=== PATIENT | female | born 1990 | race African-American/Black ===

== ENCOUNTER 2021-01-26 09:45 | Emergency (ER) | payer MEDICAID ==
[~2021-01-26] VITALS: Ht 162.6 cm; Wt 66.0 kg
[2021-01-26] MEDS ORDERED: IBUPROFEN 800MG TABLET PO ONE (10:00)
[2021-01-26] MEDS ORDERED: METOCLOPRAMIDE HCL 10MG TABLET PO ONE (10:00)
[2021-01-26] MEDS ORDERED: SERTRALINE HCL 100MG TABLET PO STA (10:02)
[2021-01-26] MEDS ORDERED: SERT100T MT (11:16)
[2021-01-26] MEDS ORDERED: TOPUD MT (11:16)
[2021-01-26 11:41] VITALS: BP 121/75
== END 2021-01-26 11:56 | disposition home or self-care (01) ==
LOC: ER 09:49
DX: F41.9 Anxiety disorder, unspecified (principal); R51.9 Headache, unspecified; Z76.0 Encounter for issue of repeat prescription
CPT/HCPCS: 81025; 93005; 99284; J8597; Z7610

== ENCOUNTER 2021-03-01 15:46 | Emergency (ER) | payer MEDICAID ==
[~2021-03-01] VITALS: Ht 162.6 cm; Wt 73.0 kg
[~2021-03-01 15:46] MED LIST: SERT100T MT; TOPUD MT
[2021-03-01] MEDS ORDERED: SODIUM CHLORIDE 0.9% 1,000 ML IV ONE (16:30)
[2021-03-01] MEDS ORDERED: ACETAMINOPHEN 325MG TABLET PO ONE (17:15)
[2021-03-01 17:28] LABS: BASOPHILS % 0.7 % (0.0-2.0); EOSINOPHILS % 1.2 % (0.0-5.0); HEMATOCRIT. 37.6 % (36.0-48.0); HEMOGLOBIN. 12.9 g/dL (12.0-16.0); LYMPHOCYTES % 20.7 % (20.0-50.0); MEAN CORPUSCULAR VOLUME 87.4 fL (81.0-99.0); MEAN PLATELET VOLUME 7.8 fl (7.4-10.4); MONOCYTES % 10.6 % (2.0-8.0); NEUTROPHILS % 66.8 % (40.0-76.0); PLATELET 282 x1000/uL (130-400); RED BLOOD CELL COUNT 4.31 mill/uL (4.2-5.4); RED CELL DISTRIBUTION WIDTH 14.8 % (11.6-14.6)
[2021-03-01 17:34] LABS: CHLORIDE 103 mEq/L (98-107)
[2021-03-01 17:35] LABS: CLARITY URINE CLOUDY (CLEAR); COLOR URINE YELLOW (YELLOW); KETONES URINE TRACE (NEGATIVE); LEUKOCYTE ESTERASE URINE TRACE (NEGATIVE); NITRITE URINE NEGATIVE (NEGATIVE); OCCULT BLOOD URINE NEGATIVE (NEGATIVE); PH URINE 5.5 (4.5-8.0); PROTEIN URINE NEGATIVE (NEGATIVE); SPECIFIC GRAVITY URINE 1.027 (1.005-1.030)
[2021-03-01 17:36] LABS: PROTHROMBIN TIME 10.5 sec (9.6-11.0)
[2021-03-01 17:39] LABS: ETHANOL BLOOD < 10 mg/dL
[2021-03-01 17:49] LABS: *BARBITURATES SCREEN URINE NEGATIVE (NEGATIVE); *COCAINE SCREEN URINE NEGATIVE (NEGATIVE); CANNABINOID URINE SCREEN NEGATIVE (NEGATIVE); METHADONE URINE SCREEN NEGATIVE (NEGATIVE); OPIATES URINE SCREEN NEGATIVE (NEGATIVE); PHENCYCLIDINE URINE SCREEN NEGATIVE (NEGATIVE)
[2021-03-01 17:50] LABS: *AMPHETAMINES SCREEN URINE NEGATIVE (NEGATIVE); *BENZODIAZEPINES SCREEN URINE NEGATIVE (NEGATIVE)
[2021-03-01 17:59] LABS: B-HCG QUANTITATIVE 148157 mIU/mL (<3)
[2021-03-02] MEDS ORDERED: MIDAZOLAM HCL 2 MG/2 ML VIAL IV ONE (02:00)
[2021-03-02] MEDS ORDERED: MORPHINE SULFATE 4 MG/ML CPJ (NOT FOR IM USE) IV ONE (02:30)
[2021-03-02] MEDS ORDERED: ACETAMINOPHEN 325MG TABLET PO ONE (07:15)
[2021-03-02 08:11] VITALS: BP 115/73
== END 2021-03-02 08:59 | disposition short-term general hospital (02) ==
LOC: ER 15:46
DX: O26.891 Other specified pregnancy related conditions, first trimester (principal); S00.83XA Contusion of other part of head, initial encounter; T14.8XXA Other injury of unspecified body region, initial encounter; O99.341 Other mental disorders complicating pregnancy, first trimester; Z3A.01 Less than 8 weeks gestation of pregnancy; Z20.822 Contact with and (suspected) exposure to COVID-19; Y04.0XXA Assault by unarmed brawl or fight, initial encounter; Y93.89 Activity, other specified; Y92.018 Other place in single-family (private) house as the place of occurrence of the external cause
CPT/HCPCS: 36415; 70450; 70486; 72125; 72141; 76801; 80053; 80305; 80320; 81003; 81025; 83690; 84702; 85025; 85610; 86850; 86900; 86901; 87426; 93005; 96361; 96374; 96375; 99285; J2250; J2270; J7030; Z7610; G0480

== ENCOUNTER 2021-04-01 15:44 | Emergency (ER) | payer MEDICAID, OTHER ==
[~2021-04-01] VITALS: Ht 162.6 cm; Wt 74.0 kg
[2021-04-01] MEDS ORDERED: ACETAMINOPHEN 500MG TABLET PO STA (16:32)
[2021-04-01 17:57] LABS: CLARITY URINE CLEAR (CLEAR); COLOR URINE YELLOW (YELLOW); KETONES URINE NEGATIVE (NEGATIVE); LEUKOCYTE ESTERASE URINE NEGATIVE (NEGATIVE); NITRITE URINE NEGATIVE (NEGATIVE); OCCULT BLOOD URINE NEGATIVE (NEGATIVE); PROTEIN URINE NEGATIVE (NEGATIVE); SPECIFIC GRAVITY URINE 1.019 (1.005-1.030)
[2021-04-01 18:17] LABS: *AMPHETAMINES SCREEN URINE NEGATIVE (NEGATIVE); *BARBITURATES SCREEN URINE NEGATIVE (NEGATIVE); *BENZODIAZEPINES SCREEN URINE NEGATIVE (NEGATIVE); *COCAINE SCREEN URINE NEGATIVE (NEGATIVE); CANNABINOID URINE SCREEN NEGATIVE (NEGATIVE); METHADONE URINE SCREEN NEGATIVE (NEGATIVE); OPIATES URINE SCREEN NEGATIVE (NEGATIVE); PHENCYCLIDINE URINE SCREEN NEGATIVE (NEGATIVE)
[2021-04-01 19:00] VITALS: BP 58/76
== END 2021-04-01 19:04 | disposition home or self-care (01) ==
LOC: ER 16:05
DX: R51.9 Headache, unspecified (principal); I49.9 Cardiac arrhythmia, unspecified
CPT/HCPCS: 70450; 70486; 80305; 81003; 81025; 93005; 99285; Z7610

== ENCOUNTER 2021-06-19 21:21 | Observation (INO) | payer OTHER, MEDICAID ==
[~2021-06-19] VITALS: Ht 160 cm; Wt 75.7 kg
[2021-06-19 22:15] LABS: CLARITY URINE CLEAR (CLEAR); COLOR URINE YELLOW (YELLOW); KETONES URINE NEGATIVE (NEGATIVE); LEUKOCYTE ESTERASE URINE 3+ (NEGATIVE); NITRITE URINE NEGATIVE (NEGATIVE); OCCULT BLOOD URINE NEGATIVE (NEGATIVE); PROTEIN URINE NEGATIVE (NEGATIVE); SPECIFIC GRAVITY URINE 1.012 (1.005-1.030); UROBILINOGEN URINE 0.2 E.U./dL (0.2-1.0)
[2021-06-19] MEDS ORDERED: CEFAZOLIN 2,000 MG in DEXT 5% WATER 100 ML IV NR (23:15)
[2021-06-19] MEDS ORDERED: LACTATED RINGERS 1,000 ML IV SCH (23:15)
[2021-06-20] MEDS ORDERED: PREN1TAB23 PO (00:19)
[2021-06-20] MEDS ORDERED: SERT100T PO (00:19)
== END 2021-06-20 01:24 | disposition home or self-care (01) ==
LOC: 8 EST LDRP 21:21
PROVIDERS: ADMIT Obstetrics & Gynecology; ATTEND Obstetrics & Gynecology
DX: O42.912 Preterm premature rupture of membranes, unspecified as to length of time between rupture and onset of labor, second trimester (principal); O26.892 Other specified pregnancy related conditions, second trimester; R10.30 Lower abdominal pain, unspecified; Z3A.21 21 weeks gestation of pregnancy
CPT/HCPCS: 59025; 76805; 76817; 81003; 96365; G0378; J0690; J7060; 96360; 99281

== ENCOUNTER 2021-06-20 05:29 | Emergency (ER) | payer MEDICAID, OTHER ==
[~2021-06-20] VITALS: Ht 160 cm; Wt 76.0 kg
[~2021-06-20 05:29] MED LIST changes: +PREN1TAB23 PO; +SERT100T PO
[2021-06-20] MEDS ORDERED: METOCLOPRAMIDE HCL 10MG/2ML VIAL IV ONE (06:30)
[2021-06-20] MEDS ORDERED: SODIUM CHLORIDE 0.9% 1,000 ML IV ONE (06:30)
[2021-06-20 07:30] LABS: BASOPHILS % 0.3 % (0.0-2.0); EOSINOPHILS % 1.7 % (0.0-5.0); HEMATOCRIT. 35.5 % (36.0-48.0); HEMOGLOBIN. 12.3 g/dL (12.0-16.0); LYMPHOCYTES % 14.9 % (20.0-50.0); MEAN CORPUSCULAR HEMOGLOBIN 30.3 pg (28.0-32.0); MEAN CORPUSCULAR VOLUME 87.5 fL (81.0-99.0); MEAN PLATELET VOLUME 7.6 fl (7.4-10.4); NEUTROPHILS % 72.1 % (40.0-76.0); PLATELET 250 x1000/uL (130-400); RED BLOOD CELL COUNT 4.06 mill/uL (4.2-5.4); RED CELL DISTRIBUTION WIDTH 14.2 % (11.6-14.6)
[2021-06-20 07:37] LABS: CHLORIDE 106 mEq/L (98-107)
[2021-06-20 08:45] LABS: PROTHROMBIN TIME 10.5 sec (9.6-11.0)
[2021-06-20 09:08] LABS: CLARITY URINE CLOUDY (CLEAR); COLOR URINE YELLOW (YELLOW); KETONES URINE NEGATIVE (NEGATIVE); LEUKOCYTE ESTERASE URINE 3+ (NEGATIVE); NITRITE URINE NEGATIVE (NEGATIVE); OCCULT BLOOD URINE NEGATIVE (NEGATIVE); PROTEIN URINE NEGATIVE (NEGATIVE); SPECIFIC GRAVITY URINE 1.009 (1.005-1.030); UROBILINOGEN URINE 0.2 E.U./dL (0.2-1.0)
[2021-06-20] MEDS ORDERED: NITROFURANTOIN 100MG M/M CAPSULE PO ONE (10:00)
[2021-06-20 10:41] VITALS: BP 101/70
== END 2021-06-20 10:45 | disposition home or self-care (01) ==
LOC: ER 05:29
DX: N39.0 Urinary tract infection, site not specified (principal); Z20.822 Contact with and (suspected) exposure to COVID-19; Z79.899 Other long term (current) drug therapy
CPT/HCPCS: 36415; 80053; 81003; 83690; 85025; 85610; 87086; 87426; 96374; 99285; J2765; J7030

== ENCOUNTER 2021-07-05 13:36 | Emergency (ER) | payer OTHER, MEDICAID ==
[~2021-07-05] VITALS: Ht 160 cm; Wt 79.3 kg
[~2021-07-05 13:36] MED LIST changes: -SERT100T MT; -TOPUD MT
[2021-07-05 13:44] VITALS: BP 113/86
== END 2021-07-05 17:24 | disposition left against medical advice (07) ==
LOC: ER 13:36
DX: M79.602 Pain in left arm (principal); Z53.21 Procedure and treatment not carried out due to patient leaving prior to being seen by health care provider
CPT/HCPCS: 82962

== ENCOUNTER 2021-07-25 11:53 | Emergency (ER) | payer MEDICAID ==
[~2021-07-25] VITALS: Ht 162.6 cm; Wt 72.0 kg
[2021-07-25] MEDS ORDERED: ACETAMINOPHEN 325MG TABLET PO ONE (15:15)
[2021-07-25 15:32] LABS: BASOPHILS % 0.6 % (0.0-2.0); EOSINOPHILS % 1.8 % (0.0-5.0); HEMATOCRIT. 33.2 % (36.0-48.0); HEMOGLOBIN. 11.3 g/dL (12.0-16.0); LYMPHOCYTES % 18.2 % (20.0-50.0); MEAN CORPUSCULAR HEMOGLOBIN 29.2 pg (28.0-32.0); MEAN CORPUSCULAR VOLUME 85.8 fL (81.0-99.0); MEAN PLATELET VOLUME 7.5 fl (7.4-10.4); MONOCYTES % 8.8 % (2.0-8.0); NEUTROPHILS % 70.6 % (40.0-76.0); PLATELET 229 x1000/uL (130-400); RED BLOOD CELL COUNT 3.87 mill/uL (4.2-5.4); RED CELL DISTRIBUTION WIDTH 14.1 % (11.6-14.6)
[2021-07-25 15:37] LABS: CLARITY URINE CLEAR (CLEAR); COLOR URINE YELLOW (YELLOW); KETONES URINE NEGATIVE (NEGATIVE); LEUKOCYTE ESTERASE URINE NEGATIVE (NEGATIVE); NITRITE URINE NEGATIVE (NEGATIVE); OCCULT BLOOD URINE NEGATIVE (NEGATIVE); PROTEIN URINE NEGATIVE (NEGATIVE); SPECIFIC GRAVITY URINE 1.013 (1.005-1.030)
[2021-07-25 15:38] LABS: CHLORIDE 107 mEq/L (98-107)
[2021-07-25 18:33] VITALS: BP 122/70
[2021-07-25 21:36] LABS: B-HCG QUANTITATIVE 14116 mIU/mL (<3)
== END 2021-07-25 19:19 | disposition home or self-care (01) ==
LOC: UNDOADMOB 11:53 → ER 11:53 → 8 EST LDRP 11:53 → ER 13:47 → EDSTATUS 13:47 → ER 19:19
DX: O26.893 Other specified pregnancy related conditions, third trimester (principal); R10.2 Pelvic and perineal pain; M25.532 Pain in left wrist; Z3A.29 29 weeks gestation of pregnancy
CPT/HCPCS: 36415; 76805; 80053; 81003; 84702; 85025; 93005; 93971; 99281; 99285

== ENCOUNTER 2021-12-22 10:13 | Emergency (ER) | payer MEDICAID, OTHER ==
[~2021-12-22] VITALS: Ht 165.1 cm; Wt 91.0 kg
[2021-12-22 10:16] VITALS: BP 129/80
[2021-12-22] MEDS ORDERED: SERT-112 MT (10:32)
== END 2021-12-22 11:27 | disposition home or self-care (01) ==
LOC: ER 10:13
DX: Z76.0 Encounter for issue of repeat prescription (principal); F41.9 Anxiety disorder, unspecified
CPT/HCPCS: 99283

== ENCOUNTER 2023-04-08 20:40 | Emergency (ER) | payer MEDICAID, OTHER ==
[~2023-04-08] VITALS: Ht 162.6 cm; Wt 81.0 kg
[~2023-04-08 20:40] MED LIST changes: +SERT-112 MT
[2023-04-08 20:50] VITALS: BP 138/84
== END 2023-04-08 22:42 | disposition left against medical advice (07) ==
LOC: ER 20:40
DX: R07.9 Chest pain, unspecified (principal); Z53.21 Procedure and treatment not carried out due to patient leaving prior to being seen by health care provider
CPT/HCPCS: 99281

== ENCOUNTER 2024-04-26 07:01 | Emergency (ER) | payer MEDICAID ==
[~2024-04-26] VITALS: Ht 162.6 cm; Wt 77.0 kg
[2024-04-26 07:04] VITALS: BP 133/87; PULSE 104; RESP 14; TEMP 98.3
[2024-04-26] MEDS ORDERED: IBUP-2029 MT (07:32)
[2024-04-26] MEDS ORDERED: PENI500T MT (07:32)
== END 2024-04-26 07:39 | disposition home or self-care (01) ==
LOC: ER 07:01
DX: K08.89 Other specified disorders of teeth and supporting structures (principal); F41.9 Anxiety disorder, unspecified
CPT/HCPCS: 99283

== ENCOUNTER 2024-06-07 19:10 | Emergency (ER) | payer OTHER ==
[~2024-06-07] VITALS: Ht 160 cm; Wt 82.0 kg
[~2024-06-07 19:10] MED LIST changes: +IBUP-2029 MT; +PENI500T MT
[2024-06-07 19:46] VITALS: O2SAT 98
[2024-06-07] MEDS ORDERED: HYDR-3992 MT (20:27)
[2024-06-07 20:35] VITALS: BP 139/80; PULSE 82; RESP 18; TEMP 98.2
== END 2024-06-07 20:38 | disposition home or self-care (01) ==
LOC: ER 19:10
DX: F41.9 Anxiety disorder, unspecified (principal)
CPT/HCPCS: 99283

== ENCOUNTER 2024-10-03 09:33 | Emergency (ER) | payer OTHER ==
[~2024-10-03] VITALS: Ht 154.9 cm; Wt 86.0 kg
[~2024-10-03 09:33] MED LIST changes: +HYDR-3992 MT
[2024-10-03 09:36] VITALS: BP 127/79; O2SAT 97
[2024-10-03 10:13] LABS: BASOPHILS % 0.5 % (0.0-2.0); EOSINOPHILS % 1.4 % (0.0-5.0); HEMATOCRIT. 38.3 % (36.0-48.0); HEMOGLOBIN. 12.8 g/dL (12.0-16.0); LYMPHOCYTES % 22.9 % (20.0-50.0); MEAN CORPUSCULAR HEMOGLOBIN 28.4 pg (28.0-32.0); MEAN CORPUSCULAR HGB CONC 33.5 g/dL (31.0-37.0); MEAN PLATELET VOLUME 7.5 fl (7.4-10.4); MONOCYTES % 7.5 % (2.0-8.0); NEUTROPHILS % 67.7 % (40.0-76.0); PLATELET 319 x1000/uL (130-400); RED BLOOD CELL COUNT 4.51 mill/uL (4.2-5.4); RED CELL DISTRIBUTION WIDTH 13.8 % (11.6-14.6); WHITE BLOOD COUNT 8.3 x1000/uL (4.5-11.0)
[2024-10-03 10:19] LABS: CHLORIDE 102 mEq/L (98-107); POTASSIUM 3.3 mEq/L (3.5-5.1); SODIUM 137 mEq/L (136-145)
[2024-10-03 10:20] LABS: CARBON DIOXIDE 23 mEq/L (21-32)
[2024-10-03 10:21] LABS: CALCIUM 9.1 mg/dL (8.7-10.4)
[2024-10-03 10:25] LABS: GLUCOSE 106 mg/dL (70-105)
[2024-10-03 10:26] LABS: UREA NITROGEN BLOOD 11 mg/dL (9-23)
[2024-10-03 10:27] LABS: ALANINE AMINOTRANSFERASE 17 IU/L (10-49); ALBUMIN 4.3 g/dL (3.2-4.8); ASPARTATE AMINOTRANSFERASE 19 IU/L (<34)
[2024-10-03 10:28] LABS: BILIRUBIN DIRECT 0.2 mg/dL (<=3.0); BILIRUBIN TOTAL 0.8 mg/dL (0.1-1.0); PROTEIN TOTAL 7.9 g/dL (6.0-8.3)
[2024-10-03 10:30] LABS: HCG SCREEN NEGATIVE
[2024-10-03] MEDS: DICYCLOMINE HCL 10MG CAPSULE PO ONE (11:39)
[2024-10-03] MEDS: ONDANSETRON 4MG/5ML UDC PO ONE (11:39)
[2024-10-03] MEDS: FAMOTIDINE 20MG TABLET PO ONE (11:40)
[2024-10-03] MEDS: ACETAMINOPHEN 325MG TABLET PO ONE (11:45)
[2024-10-03 11:55] LABS: CLARITY URINE CLEAR (CLEAR); COLOR URINE YELLOW (YELLOW); GLUCOSE URINE NEGATIVE (NEGATIVE); KETONES URINE NEGATIVE (NEGATIVE); LEUKOCYTE ESTERASE URINE TRACE (NEGATIVE); NITRITE URINE NEGATIVE (NEGATIVE); OCCULT BLOOD URINE NEGATIVE (NEGATIVE); PROTEIN URINE TRACE (NEGATIVE); SPECIFIC GRAVITY URINE 1.025 (1.005-1.030)
[2024-10-03 12:52] LABS: MUCUS URINE 3+ /lpf (< = 2+); SQUAMOUS EPITHELIAL CELL URINE 2+ /lpf (RARE/1+)
[2024-10-03 12:55] LABS: BACTERIA URINE 2+; TRICHOMONAS URINE 1+
[2024-10-03] MEDS ORDERED: METR-167 MT (13:06)
[2024-10-03] MEDS ORDERED: NITR-87 MT (13:06)
[2024-10-03 13:35] VITALS: PULSE 81; RESP 18; TEMP 36.44736; O2SAT 99
== END 2024-10-03 13:36 ==
LOC: ER 09:33
DX: N39.0 Urinary tract infection, site not specified (principal); A59.9 Trichomoniasis, unspecified; Z79.899 Other long term (current) drug therapy
CPT/HCPCS: 36415; 74176; 76856; 80048; 80076; 81003; 81025; 84703; 85025; 99284